=== PATIENT | male | born 1975 | race Caucasian/White ===

== ENCOUNTER 2018-12-12 01:10 | Inpatient (IN) | payer BC, OTHER ==
[~2018-12-12] VITALS: Ht 182.9 cm; Wt 149.9 kg
[2018-12-12 01:18] VITALS: BP_SYST 176
[2018-12-12] MEDS ORDERED: NACL 0.9% 1,000 ML IV ONE (01:30)
[2018-12-12] MEDS ORDERED: MORPHINE 4 MG/ML INJ. SYRINGE IVP ONE ×2 (01:30→02:15)
[2018-12-12] MEDS ORDERED: ONDANSETRON HCL 4 MG/2 ML VIAL IVP ONE ×3 (01:30→14:00)
[2018-12-12 01:46] LABS: BASOPHILS # (AUTO) 0.2 K/uL (0.0-0.2); BASOPHILS % (AUTO) 1.9 % (0.0-2.0); EOSINOPHILS # (AUTO) 0.3 K/uL (0.0-0.4); EOSINOPHILS % (AUTO) 2.3 % (0.0-4.0); HEMATOCRIT 46.2 % (36-54); HEMOGLOBIN 15.1 g/dL (14.0-18.0); LYMPHOCYTES # (AUTO) 3.1 K/uL (1.0-5.5); LYMPHOCYTES % (AUTO) 26.2 % (20.5-51.5); MEAN CORPUSCULAR HEMOGLOBIN 28 pg (27-31); MEAN CORPUSCULAR HGB CONC 33 % (32-36); MEAN CORPUSCULAR VOLUME 87 fL (79.0-98.0); MONOCYTES # (AUTO) 0.7 K/uL (0.0-1.0); MONOCYTES % (AUTO) 5.8 % (1.7-9.3); NEUTROPHILS # (AUTO) 7.4 K/uL (1.8-7.7); NEUTROPHILS % (AUTO) 63.8 % (40.0-70.0); PLATELET COUNT (AUTO) 336 K/uL (130-430); RED BLOOD CELL COUNT(AUTO) 5.34 MIL/uL (4.2-6.2); RED CELL DISTRIBUTION WIDTH 12.7 % (9.0-15.0); WHITE BLOOD COUNT (AUTO) 11.7 K/uL (4.8-10.8)
[2018-12-12 01:59] LABS: CALCIUM 9.3 mg/dL (8.4-11.0); CREATININE 1.29 mg/dL (0.55-1.30)
[2018-12-12 02:02] LABS: BILIRUBIN,URINE NEGATIVE (NEGATIVE); BLOOD, URINE 3+ (NEGATIVE); CLARITY/URINE CLEAR (CLEAR); COLOR,URINE YELLOW (YELLOW); GLUCOSE,URINE NEGATIVE (NEGATIVE); KETONES,URINE NEGATIVE (NEGATIVE); LEUKOCYTE ESTERASE ,URINE NEGATIVE (NEGATIVE); NITRITE, URINE NEGATIVE (NEGATIVE); PH,URINE 5.5 (5.0-8.0); PROTEIN URINE TRACE (NEGATIVE); UROBILINOGEN,URINE 0.2 (0.2-1.0)
[2018-12-12 02:05] LABS: ALBUMIN 3.8 g/dL (3.4-4.8); TOTAL BILIRUBIN 0.6 mg/dL (0.0-1.0)
[2018-12-12 02:08] LABS: BACTERIA,URINE MODERATE /HPF (None Seen); MUCUS,URINE 1+ /LPF (None Seen); RBC,URINE 80-100 /HPF (0-3)
[2018-12-12] MEDS ORDERED: PIPERACILLIN/TAZO 3.375 GM in NS 50 ML IV ONE (02:15)
[2018-12-12] MEDS ORDERED: PIPERACILLIN/TAZOBACTAM 3.375 GM/VIAL (ZOSYN) IV ONE (02:26)
[2018-12-12] MEDS ORDERED: MORPHINE 4 MG/ML INJ. SYRINGE IVP PRN ×2 (02:30)
[2018-12-12] MEDS ORDERED: ONDANSETRON HCL 4 MG/2 ML VIAL IVP PRN (02:30)
[2018-12-12 02:53] VITALS: BP_SYST 193
[2018-12-12] MEDS: NACL 0.9% 1,000 ML IV SCH ×2 (03:23→10:33)
[2018-12-12 08:00] VITALS: BP_SYST 135
[2018-12-12 10:05] LABS: PROTHROMBIN TIME 9.9 SECS (9.5-12.5)
[2018-12-12] MEDS ORDERED: ENALAPRILAT DIHYDRATE 1.25 MG/ML VIAL IVP PRN (11:00)
[2018-12-12] MEDS ORDERED: cloNIDine HCL 0.1 MG TABLET PO PRN (11:00)
[2018-12-12] MEDS ORDERED: hydrALAZINE HCL 20 MG/ML VIAL IVP PRN (11:00)
[2018-12-12 11:26] LABS: HEMOGLOBIN 14.4 g/dL (14.0-18.0); MEAN CORPUSCULAR HEMOGLOBIN 28 pg (27-31); MEAN CORPUSCULAR HGB CONC 32 % (32-36); MEAN CORPUSCULAR VOLUME 88 fL (79.0-98.0); PLATELET COUNT (AUTO) 345 K/uL (130-430); RED BLOOD CELL COUNT(AUTO) 5.13 MIL/uL (4.2-6.2); RED CELL DISTRIBUTION WIDTH 12.9 % (9.0-15.0); WHITE BLOOD COUNT (AUTO) 10.3 K/uL (4.8-10.8)
[2018-12-12 11:32] LABS: CALCIUM 8.9 mg/dL (8.4-11.0); CREATININE 0.92 mg/dL (0.55-1.30); POTASSIUM 3.8 mmol/L (3.5-5.1)
[2018-12-12 11:38] LABS: ALBUMIN 3.5 g/dL (3.4-4.8); TOTAL BILIRUBIN 0.8 mg/dL (0.0-1.0)
[2018-12-12 12:33] LABS: BASOPHILS % (MANUAL) 0 % (0-2); EOSINOPHILS % (MANUAL) 1 % (0-7); LYMPHOCYTES % (MANUAL) 35 % (20-46); MONOCYTES % (MANUAL) 5 % (0-11)
[2018-12-12] MEDS ORDERED: KETOROLAC TROMETHAMINE 30 MG VIAL IVP ONE ×2 (12:35→14:00)
[2018-12-12] MEDS ORDERED: DEXAMETHASONE SOD PHOSPHATE 4 MG/ML VIAL IVP ONE ×2 (12:35→14:00)
[2018-12-12] MEDS ORDERED: LR 1,000 ML IV.SOLN IV ONE (12:35)
[2018-12-12] MEDS ORDERED: ROCURONIUM BROMIDE 10 MG/ML (ZEMURON) IV ONE ×2 (12:35→14:00)
[2018-12-12] MEDS ORDERED: cefTRIAXone 1 GM IVPB PREMIX 50 ML IV ONE (12:35)
[2018-12-12] MEDS ORDERED: METOCLOPRAMIDE HCL 10 MG/2 ML VIAL IVP ONE (12:35)
[2018-12-12] MEDS ORDERED: MIDAZOLAM HCL 5 MG/5 ML VIAL IVP ONE ×2 (12:35→14:00)
[2018-12-12] MEDS ORDERED: PROPOFOL 200MG/ 20ML VIAL (DIPRIVAN) IV ONE ×2 (12:35→14:00)
[2018-12-12] MEDS ORDERED: SEVOFLURANE 15 MIN GAS INH ONE ×2 (12:35→14:00)
[2018-12-12] MEDS ORDERED: fentaNYL CITRATE 250 MCG/5 ML AMP IV ONE ×2 (12:35→14:00)
[2018-12-12 12:41] VITALS: BP_SYST 140
[2018-12-12] MEDS ORDERED: CEFAZOLIN 2 GM IVPB PREMIX 50 ML IV ONE (14:00)
[2018-12-12] MEDS ORDERED: WATER FOR IRRIGATION,STERILE 1,000 ML IRRIG.SOLN IR ONE (14:00)
[2018-12-12] MEDS ORDERED: LR 1,000 ML IV SCH (14:39)
[2018-12-12] MEDS ORDERED: HYDROmorphone 1 MG INJ. 1 MG/ML AMPUL IVP PRN (14:45)
[2018-12-12] MEDS ORDERED: HYDROmorphone 2 MG/ML VIAL IVP PRN ×2 (14:45)
[2018-12-12] MEDS ORDERED: MEPERIDINE HCL/PF 25 MG/ML DISP.SYRIN IVP PRN (14:45)
[2018-12-12 16:10] VITALS: BP_SYST 145
[2018-12-12 20:06] VITALS: BP_SYST 156
== END 2018-12-12 20:30 | disposition home or self-care (01) | DRG 660 ==
LOC: SED 01:10 → SMU 02:25 → STU 03:06 → SMU 03:07
PROVIDERS: ADMIT Internal Medicine Hospice and Palliative Medicine; ATTEND Internal Medicine Hospice and Palliative Medicine
PROC: BT1D1ZZ Fluoroscopy of Right Kidney, Ureter and Bladder using Low Osmolar Contrast (ICD-10-PCS; 2018-12-12)
PROC: 0T768DZ Dilation of Right Ureter with Intraluminal Device, Via Natural or Artificial Opening Endoscopic (ICD-10-PCS; principal; 2018-12-12 14:00)
DX: N13.2 Hydronephrosis with renal and ureteral calculous obstruction (principal); Z68.41 Body mass index [BMI] 40.0-44.9, adult; R03.0 Elevated blood-pressure reading, without diagnosis of hypertension; E66.01 Morbid (severe) obesity due to excess calories; Z88.8 Allergy status to other drugs, medicaments and biological substances
CPT/HCPCS: 36415; 74018; 76000; 80053; 81000-TC; 83690-TC; 85007; 85025; 85027; 85610-TC; 85730-TC; 87086; 96365; 96375; 99285; C1769; C2625; J0690; J0696; J1100; J1885; J2250; J2270; J2405; J2543; J2704; J2765; J3010; J7030; J7120

== ENCOUNTER 2023-05-24 10:34 | Emergency (ER) | payer BC, OTHER ==
[~2023-05-24] VITALS: Ht 175.3 cm; Wt 79.4 kg
--- NOTE | 2023-05-24 10:40 | NUR ---
Placed in room 8 . Placed on senior policy analyst, blood pressure machine and pulse oximeter. To gown for exam. Side rails up. Report given to MARY NAGEL.
--- NOTE | 2023-05-24 10:47 | NUR ---
Patient being seen by Dr. Maldonado.
--- NOTE | 2023-05-24 10:49 | NUR ---
Patient to CT scan
--- NOTE | 2023-05-24 10:55 | NUR ---
Patient BIB self c/o left sided abdominal pain 10/ radiates to back since this AM. Denies N/V/D. Patient has Hx of kidney stones for which a surgical stent placement was required. Denies other med hx. Allergy to walnuts & sodium pentathol. VSS.
--- NOTE | 2023-05-24 11:03 | NUR ---
Surgery Nurse at bedside obtaining samples for testing.
[2023-05-24 11:11] LABS: BASOPHILS % (AUTO) 0.2 % (0.0-2.0); EOSINOPHILS % (AUTO) 0.1 % (0.0-4.0); HEMATOCRIT 45.8 % (36-54); HEMOGLOBIN 14.7 g/dL (14.0-18.0); LYMPHOCYTES # (AUTO) 1.2 K/uL (1.0-5.5); LYMPHOCYTES % (AUTO) 10.5 % (20.5-51.5); MEAN CORPUSCULAR HEMOGLOBIN 28 pg (27-31); MEAN CORPUSCULAR HGB CONC 32 % (32-36); MEAN CORPUSCULAR VOLUME 89 fL (79.0-98.0); MONOCYTES # (AUTO) 0.2 K/uL (0.0-1.0); MONOCYTES % (AUTO) 1.8 % (1.7-9.3); NEUTROPHILS # (AUTO) 9.7 K/uL (1.8-7.7); NEUTROPHILS % (AUTO) 87.4 % (40.0-70.0); PLATELET COUNT (AUTO) 261 K/uL (130-430); RED BLOOD CELL COUNT(AUTO) 5.17 MIL/uL (4.2-6.2); WHITE BLOOD COUNT (AUTO) 11.1 K/uL (4.8-10.8)
[2023-05-24 11:25] LABS: ANION GAP 11 (5-15); CALCIUM 9.1 mg/dL (8.4-11.0); CHLORIDE 105 mmol/L (98-107); CREATININE 1.28 mg/dL (0.55-1.30); GFR AFRICAN AMERICAN 78 mL/min (>90); GLUCOSE 130 mg/dL (74-106); UREA NITROGEN, BLOOD 20 mg/dL (8-21)
[2023-05-24] MEDS ORDERED: KETOROLAC TROMETHAMINE 60 MG/2 ML VIAL IM ONE (11:30)
[2023-05-24 11:31] LABS: ALBUMIN 4.2 g/dL (3.4-4.8); AMYLASE 82 U/L (0-100); ASPARTATE AMINOTRANSFERASE 19 U/L (10-37); LACTATE DEHYDROGENASE 174 U/L (85-227); LIPASE 81 U/L (73-393); PROTHROMBIN TIME 10.4 SECS (9.5-12.5); TOTAL BILIRUBIN 1.5 mg/dL (0.0-1.0)
--- NOTE | 2023-05-24 11:32 | NUR ---
Patient medicated according to MD orders.
[2023-05-24 11:41] LABS: ALANINE AMINOTRANSFERASE 9 U/L (12-78)
[2023-05-24 11:43] LABS: ACETONE, SERUM NEGATIVE (NEGATIVE)
[2023-05-24 11:54] LABS: BILIRUBIN,URINE NEGATIVE (NEGATIVE); BLOOD, URINE 3+ (NEGATIVE); CLARITY/URINE CLEAR (CLEAR); COLOR,URINE YELLOW (YELLOW); GLUCOSE,URINE NEGATIVE (NEGATIVE); KETONES,URINE 1+ (NEGATIVE); LEUKOCYTE ESTERASE ,URINE NEGATIVE (NEGATIVE); NITRITE, URINE NEGATIVE (NEGATIVE); PROTEIN URINE NEGATIVE (NEGATIVE); UROBILINOGEN,URINE 0.2 (0.2-1.0)
[2023-05-24 12:03] LABS: BACTERIA,URINE None Seen /HPF (None Seen); WBC,URINE NONE SEEN /HPF (0-3)
--- NOTE | 2023-05-24 12:20 | NUR ---
Patient states his pain level is at 2/10, pain medication was effective.
[2023-05-24] MEDS ORDERED: TRAM50TA2 PO (14:00)
[2023-05-24] MEDS ORDERED: IBUP-1971 PO (14:00)
--- NOTE | 2023-05-24 14:05 | NUR ---
Patient given written and verbal discharge instructions and verbalizes understanding. ER MD KWONG discussed with patient the results and treatment provided. Patient in stable condition. ID arm band removed. Rx of IBUPROFEN, TRAMADOL given. Patient educated on pain management and to follow up with PMD. Pain Scale 2/10. Opportunity for questions provided and answered. Medication side effect fact sheet provided.
[2023-05-24 16:52] VITALS: BP_SYST 145
== END 2023-05-24 14:05 | disposition home or self-care (01) ==
LOC: SED 10:34
DX: N23 Unspecified renal colic (principal); Z79.899 Other long term (current) drug therapy
CPT/HCPCS: 99285; 74176; 80053; 81000; 82009; 82150; 83615; 83690; 85025; 85610; 85730; 84484; 36415; 76376; 96372; 83605; J1885